=== PATIENT | female | born 1940 | race Caucasian/White ===

== ENCOUNTER 2016-12-19 08:48 | Emergency (ER) | payer MEDICARE, OTHER ==
[~2016-12-19] VITALS: Wt 54.5 kg
[~2016-12-19 08:48] MED LIST: AMLO1TAB PO; ASPI-535 PO; DEXL60CA2 PO; METO100T13 PO; PHEN-612 PO; TRAM50TA2 PO; VALA500T PO
--- NOTE | 2016-12-19 09:24 | ERA ---
ER Documentation Chief Complaint Date/Time DATE: 12/19/16 TIME: 09:21 Chief Complaint L CP FOR 15 DAYS, RADIATING TO L ARM. NO N/V. 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 The patient has a history of hypertension. She describes left-sided chest pain for approximately 25 days. She describes that it is dull, worse to touch and worse with rotational movements. She denies any falls or trauma. She also notes occasional radiation to the left arm that is also worse to touch and worse with movement. No shortness of breath no pleuritic pain, no back pain. She denies any exertional symptoms. The patient was concerned because of persistence and presents the emergency room. ROS All systems reviewed and are negative except as per history of present illness. Medications Home Meds Active Scripts Acetaminophen* (Tylophen*) 500 Mg Capsule, 2 CAP PO Q8H Y for PAIN AND OR ELEVATED TEMP, #20 CAP Prov:ROXANNA GOLDMAN MD 12/19/16 Reported Medications Aspirin* (Aspirin* Chew) 81 Mg Tab.chew, 81 MG PO DAILY, TAB.CHEW 12/19/16 Ambpnkcsix-Zjiobhjko-TPZM (Exforge HCT) 5-160-12.5 Mg Tab, 1 EACH PO DAILY, TAB 12/19/16 Dexlansoprazole (Dexilant) 60 Mg Cap., 60 MG PO DAILY, #30 CAP 01/19/16 Metoprolol Succinate* (Toprol XL*) 100 Mg Tab.sr.24h, 100 MG PO DAILY, TAB 02/17/15 Discontinued Reported Medications Phenazopyridine Hcl* (Phenazopyridine Hcl*) 100 Mg Tablet, 100 MG PO TID, TAB 02/12/16 Valacyclovir Hcl* (Valacyclovir Hcl*) 500 Mg Tablet, 500 MG PO DAILY, TAB 02/12/16 Discontinued Scripts Tramadol HCl (Tramadol HCl) 50 Mg Tablet, 50 MG PO Q6 Y for PAIN, #14 TAB Prov:KAREN HARE MD 02/12/16 Allergies Allergies: Coded Allergies: No Known Drug Allergy (Verified Allergy, Mild, 12/19/16) PMhx/Soc History of Surgery: Yes (hysterectomy) Anesthesia Reaction: No Hx Neurological Disorder: No Hx Respiratory Disorders: No Hx Cardiac Disorders: Yes (htn) Hx Psychiatric Problems: No Hx Miscellaneous Medical Probl: Yes (MULTIPLE UTI'S ) Hx Alcohol Use: No Hx Substance Use: No Hx Tobacco Use: No FmHx Family History: No diabetes Physical Exam Vitals Vital Signs Date Time Temp Pulse Resp B/P Pulse Ox O2 Delivery O2 Flow Rate FiO2 12/19/16 13:25 63 16 121/60 100 12/19/16 11:13 98.1 67 16 123/64 100 12/19/16 08:56 98.7 84 20 160/70 97 Physical Exam General: Well developed, well nourished, no acute distress Head: Normocephalic, atraumatic. Eyes: Pupils equally reactive, EOM intact ENT: Moist mucous membranes Neck: Supple, no lymphadenopathy Respiratory: Lungs clear bilaterally, no distress Cardiovascular: RRR, no murmurs, rubs, or gallops Abdominal: Soft, non-tender, non-distended, no peritoneal signs : Deferred MSK: No edema, no unilateral swelling, 5/5 strength, no pulse deficits Neurologic: Alert and oriented, moving all extremities, normal speech, no focal weakness, no cerebellar signs Skin: No rash Psych: Normal mood Result Diagram: 12/19/16 1048 12/19/16 1048 Results 24 hrs Laboratory Tests Test 12/19/16 10:48 12/19/16 13:40 Activated Partial Thromboplast Time 24.0Sec Anion Gap 17 Basophils # 0.010^3/ul Basophils % 0.7% Blood Urea Nitrogen 22mg/dl Calcium Level 9.6mg/dl Carbon Dioxide Level 27mmol/L Chloride Level 105mmol/L Creatinine 1.08mg/dl Eosinophils # 0.010^3/ul Eosinophils % 1.0% Glucose Level 90mg/dl Hematocrit 34.9% Hemoglobin 11.7g/dl INR International Normalized Ratio 0.96 Lymphocytes # 1.310^3/ul Lymphocytes % 32.2% Mean Corpuscular Hemoglobin 28.9pg Mean Corpuscular Hemoglobin Concent 33.5g/dl Mean Corpuscular Volume 86.2fl Mean Platelet Volume 10.2fl Monocytes # 0.310^3/ul Monocytes % 7.5% Neutrophils # 2.310^3/ul Neutrophils % 58.4% Nucleated Red Blood Cells # 0.010^3/ul Nucleated Red Blood Cells % 0.0/100WBC Platelet Count 64370^3/UL Potassium Level 4.4mmol/L Prothrombin Time 12.8Sec Prothrombin Time Ratio 1.0 Red Blood Count 4.0510^6/ul Red Cell Distribution Width 13.5% Sodium Level 145mmol/L Troponin I < 0.012ng/ml < 0.012ng/ml White Blood Count 4.010^3/ul Creatine Kinase 104IU/L Creatine Kinase Index 0.6 Creatinine Kinase MB (Mass) 0.63ng/ml Current Medications Medications (Trade) Dose Ordered Sig/Payal Route PRN Reason Start Time Stop Time Status Last Admin Dose Admin Aspirin (Aspirin) 324 mg ONCE ONCE PO 12/19/16 09:30 3 09:31 DC 12/19/16 09:43 Acetaminophen (Tylenol Tab) 650 mg ONCE ONCE PO 12/19/16 09:30 3 09:31 DC 12/19/16 09:43 Procedures/MDM EKG, MONITORS, & DIAGNOSTIC IMAGING: EKG: I reviewed and interpreted a 12-lead EKG. Rhythm: Normal sinus rhythm Ectopy: None Intervals: No abnormalities ST segments: No elevations or depressions T waves: No contiguous inversions Repeat EKG: EKG: I reviewed and interpreted a 12-lead EKG. Rhythm: Normal sinus rhythm Ectopy: None Intervals: No abnormalities ST segments: No elevations or depressions T waves: No contiguous inversions Chest x-ray: I reviewed and interpreted a 1 view of the chest Mediastinum: No enlargement Cardiac silhouette: No cardiomegaly Airspace: Clear lung edge bilaterally without evidence of pneumothorax Bones: No evidence of fracture LAB INTERPRETATION: Negative troponin 2 MEDICAL DECISION MAKING: The patient's history, physical exam and clinical presentation is most consistent with likely musculoskeletal etiology given reproducible symptoms, symptoms are 25 days or longer. The patient states point tenderness when she touches her skin. The patient does not have any migratory pain, no pulse deficits. This seems to be unlikely related to aortic process such as dissection. Very low clinical concern for cardiac etiology though given the patient's age investigation is warranted. Based on the patient's clinical exam and history and risk factors, I have a much lower clinical concern for pulmonary embolism, acute aortic dissection, pneumothorax, pneumonia, cardiac tamponade HEART Score: 3 MACE Rate: 1.7% Shared Decision Making: We had a conversation regarding risk stratification, MACE rate, and the risks, benefits, alternatives of disposition planning options. Disposition planning: The patient prefers to go home. 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 I would recommend hospitalization given her age however if the patient wishes to go home than a three-hour delta troponin would be most reasonable. Patient is agreeable. ER COURSE: Aspirin provided Tylenol provided The patient has remained asymptomatic. Her second troponin is negative. Repeat EKG is normal. Again, this seems to be more consistent with musculoskeletal etiology. We again discussed inpatient versus outpatient management. Patient prefers discharge. Patient can follow with primary care physician. She should return for any exertional symptoms. I kept the patient and/or family informed of laboratory and diagnostic imaging results throughout the emergency room course. DISPOSITION PLAN: We discussed follow up with the patient's primary care doctor within 24 to 48 hours as needed. We also discussed return to the emergency room for worsening symptoms or worsening condition. Discharge Medications: Tylenol Departure Diagnosis: Primary Impression: Atypical chest pain Additional Impression: Chest wall pain Condition: Stable ROXANNA GOLDMAN MD Dec 19, 2016 09:23
[2016-12-19] MEDS ORDERED: ASPIRIN 81 MG TAB PO ONE (09:30)
[2016-12-19] MEDS ORDERED: ACETAMINOPHEN 325 MG TAB PO ONE (09:30)
--- NOTE | 2016-12-19 10:13 | RADRPT ---
PROCEDURE: XR Chest. CLINICAL INDICATION: Chest and left arm pain. TECHNIQUE: Single frontal view. COMPARISON: 02/09/2016. FINDINGS: The lungs are clear. The heart size is normal. There is calcification in the aorta consistent with atherosclerosis. There is no pleural effusion. There is no pneumothorax. IMPRESSION: 1. Atherosclerosis. 2. Clear lungs. 3. No change from 02/09/2016. RPTAT: QQ .Omero Butler MD, MD Date Time Electronically viewed and signed by .Omero Butler MD, MD on 12/19/2016 10:13 .R/
[2016-12-19 10:59] LABS: ADD SCAN DIFF NO
[2016-12-19] MEDS ORDERED: ASPI81TA3 PO (11:00)
[2016-12-19] MEDS ORDERED: AMLO1TAB16 PO (11:00)
[2016-12-19 11:01] LABS: BASOPHILS % 0.7 % (0.0-2.0); HEMATOCRIT 34.9 % (37.0-47.0); HEMOGLOBIN 11.7 g/dl (12.0-16.0); LYMPHOCYTES # 1.3 10^3/ul (0.8-2.9); LYMPHOCYTES % 32.2 % (15.0-51.0); MEAN CORPUSCULAR HEMOGLOBIN 28.9 pg (29.0-33.0); MEAN CORPUSCULAR HGB CONC 33.5 g/dl (32.0-37.0); MEAN CORPUSCULAR VOLUME 86.2 fl (82.0-101.0); MEAN PLATELET VOLUME 10.2 fl (7.4-10.4); MONOCYTE # 0.3 10^3/ul (0.3-0.9); MONOCYTES % 7.5 % (0.0-11.0); NEUTROPHIL # 2.3 10^3/ul (1.6-7.5); NEUTROPHILS % 58.4 % (39.0-77.0); PLATELET COUNT 373 10^3/UL (140-415); RED BLOOD COUNT 4.05 10^6/ul (4.20-5.40); RED CELL DISTRIBUTION WIDTH 13.5 % (11.5-14.5)
[2016-12-19 11:11] LABS: CHLORIDE 105 mmol/L (97-110); POTASSIUM 4.4 mmol/L (3.5-5.1); SODIUM 145 mmol/L (135-144)
[2016-12-19 11:14] LABS: ANION GAP 17 (8-16); BLOOD UREA NITROGEN 22 mg/dl (7-20); CARBON DIOXIDE 27 mmol/L (21-31); CREATININE 1.08 mg/dl (0.44-1.00)
[2016-12-19 11:15] LABS: CALCIUM 9.6 mg/dl (8.4-10.2); GLUCOSE 90 mg/dl (70-220)
[2016-12-19 11:24] LABS: INR 0.96; PROTIME 12.8 Sec (12.2-14.2)
[2016-12-19 11:28] LABS: TROPONIN-I < 0.012 ng/ml (0.00-0.12)
[2016-12-19] MEDS ORDERED: ACET500C5 PO (13:37)
[2016-12-19 14:25] LABS: CREATINE KINASE 104 IU/L (23-200)
[2016-12-19 14:34] LABS: CK-MB 0.63 ng/ml (0.0-2.4)
[2016-12-19 14:40] LABS: TROPONIN-I < 0.012 ng/ml (0.00-0.12)
[2016-12-19 15:14] VITALS: BP 137/78; PULSE 86; RESP 18; TEMP 98.6
== END 2016-12-19 15:16 | disposition home or self-care (01) ==
LOC: E/R 08:48
DX: R07.89 Other chest pain (principal); I10 Essential (primary) hypertension; Z79.82 Long term (current) use of aspirin
CPT/HCPCS: 36415; 71010; 80048; 82550; 82553; 84484; 85025; 85610; 85730; 93005

== ENCOUNTER 2017-12-05 08:13 | Emergency (ER) | END 2017-12-05 10:50 | disposition home or self-care (01) ==